=== PATIENT | female | born 1970 | race Caucasian/White ===

== ENCOUNTER → 2016-12-18 | Outpatient (CLI) | payer OTHER | LOC: MAMO 10:17 | DX: N63 Unspecified lump in breast (principal) | CPT/HCPCS: 76641-LT; G0204 ==

== ENCOUNTER 2021-01-26 14:20 | Emergency (ER) | payer OTHER | END 2021-01-26 15:22 | disposition left against medical advice (07) | LOC: ER1 14:20 | DX: Z53.21 Procedure and treatment not carried out due to patient leaving prior to being seen by health care provider (principal) | CPT/HCPCS: 93005 ==